=== PATIENT | male | born 1975 | race Caucasian/White ===

== ENCOUNTER 2020-03-01 12:10 | Outpatient (REF) | payer OTHER, SELFPAY | END 2020-03-01 12:11 | disposition home or self-care (01) | LOC: HO.LAB 12:10 | PROVIDERS: Visit Provider Internal Medicine | DX: Z20.828 Contact with and (suspected) exposure to other viral communicable diseases (principal) | CPT/HCPCS: C9803; U0003 ==

== ENCOUNTER 2022-05-06 17:38 | Inpatient (IN) | payer OTHER, SELFPAY ==
[2022-05-06 17:46] VITALS: BP 186/109; BP 200/110; PULSE 92; PULSE 97; RESP 17; TEMP 37.9; O2SAT 96; BMI 28.3
--- NOTE | 2022-05-06 17:51 | ED.PSYCH ---
HPI - Psych General Chief Complaint: Psychiatric Symptoms Stated Complaint: crisis Time Seen by Provider: 05/06/22 17:42 Source: patient Mode of arrival: EMS Limitations: no limitations History of Present Illness HPI Narrative: 46-year-old male with history of anxiety ,depression presenting for suicidal ideations with a plan. Denies homicidal ideations. Patient tells me that he plans to overdose on pills. Patient also tells me he is experiencing tactile, visual, auditory hallucinations. He feels things crawling on his skin, he see shadows, and hears people shouting at him in his head. Patient smokes marijuana daily. He denies illicit drug use and alcohol use. Denies medical complaints Related Data Home Medications Medication Instructions Recorded Confirmed atorvastatin 40 mg tablet 40 mg PO DAILY 05/06/22 05/06/22 betamethasone dipropionate 0.05 % 1 appl topical PER PKG DIR 05/06/22 05/06/22 lotion budesonide-formoterol HFA 80 2 puff inhalation BID 05/06/22 05/06/22 mcg-4.5 mcg/actuation aerosol inhaler (Symbicort) dupilumab 300 mg/2 mL subcutaneous 300 mg subcut Q2W 05/06/22 05/06/22 syringe ([employer]) famotidine 40 mg tablet 40 mg PO BID 05/06/22 05/06/22 naproxen 500 mg tablet 500 mg PO BID 05/06/22 05/06/22 omeprazole 40 mg capsule,delayed 40 mg PO DAILY 05/06/22 05/06/22 release Allergies Allergy/AdvReac Type Severity Reaction Status Date / Time perfume Allergy Runny Nose Verified 05/06/22 19:20 soap Allergy Rash Verified 05/06/22 19:19 Review of Systems Review of Systems: Constitutional : No Fever, No Chills ENT/Mouth : No Ear Pain, No Nasal Congestion, No sore throat Eyes: No Eye Pain, No Swelling, No Redness Cardiovascular : No Chest Pain, No SOB Respiratory : No Cough, No Sputum, No Dyspnea Gastrointestinal : No Nausea, No Vomiting, No Diarrhea, No Hematochezia, No Melena Genitourinary : No Dysuria, No Urinary Frequency, No Hematuria Musculoskeletal : No Myalgias Skin : No Skin Lesions, No rash Neuro : No Weakness, No Numbness, No Paresthesias, No Dizziness, No Headache Psych : positive Anxiety, positive Depression, positive SI. Negative HI All other systems reviewed and are negative Yes all other systems are reviewed and are negative [facility] Past Medical History Attestation statement: The following information was validated with the patient. Source: old records reviewed and nursing notes reviewed Social History Social History Advance Directives: No Physical Exam Vital Signs: Vital Signs: Last Vital Signs Temp 98.4 F 05/06/22 19:18 Pulse 78 05/06/22 19:18 Resp 17 05/06/22 19:18 BP 153/105 H 05/06/22 19:18 Pulse Ox 96 05/06/22 19:18 O2 Del Method 05/06/22 19:18 BMI result Body Mass Index 28.3 vss Appearance: Alert.? Oriented X3.? No acute distress.? Head: Normocephalic, atraumatic, no step-offs or deformities Eyes: Pupils equal, round and reactive to light.? Neck: Normal inspection.? Neck supple.? CVS: Normal heart rate and rhythm.? Pulses normal.? Respiratory: No respiratory distress.? Breath sounds normal.? Abdomen: Soft and nontender.? Skin: Skin warm and dry.? Normal skin color.? Normal skin turgor.? Extremities: No lower extremity edema.? No calf ttp. 5/5 strength to bilateral upper and lower extremities Neuro: Oriented X 3.? No motor deficit.? No sensory deficit. CN 2-12 intact Course Reevaluation(s) Reevaluation #1: Nurse alerted me the patient's blood pressure is 186/109 and patient has not taking his hypertension medications for a few days. Will start on amlodipine I did medication reconciliation and patient is not on blood pressure medications. Patient is hyper tension likely chronic, no acute signs of hypertension, no changes in vision, headache or vision changes. Unlikely hypertensive urgency or emergency. Time: 22:55 Reevaluation #2: CBC appears to be within normal limits. Chemistry without acute findings requiring intervention. UA clean. Urine toxicology positive for marijuana. Salicylates acetaminophen ethanol level negative. Patient COVID negative. At this time patient will be placed into observation to allow more time to be evaluated by the behavioral health team. At time observation was started patient common cooperative no acute distress. Will continue to monitor pressures. Time: 22:56 Medications Administered Generic Name Dose Route Start Last Admin Trade Name Freq PRN Reason Stop Dose Admin Famotidine 40 mg 05/06/22 21:00 05/06/22 19:54 Famotidine 20 Mg Tablet PO 40 mg BID RASHAD Administration Naproxen 500 mg 05/06/22 21:00 05/06/22 19:53 Naproxen 500 Mg Tablet PO 500 mg BID RASHAD Administration Discontinued Medications Generic Name Dose Route Start Last Admin Trade Name Freq PRN Reason Stop Dose Admin Amlodipine Besylate 5 mg 05/06/22 20:54 05/06/22 21:14 Amlodipine Besylate 5 Mg Tablet PO 05/06/22 20:55 5 mg ONCE ONE Administration Protocol Medical Decision Making Medical Decision Making [facility] Narrative: 46-year-old male presents with suicidal ideations with a plan to overdose on pills. Physical exam benign Likely anxiety and depression versus polysubstance abuse.. Other differentials include metabolic disturbances and electrolyte imbalances although less likley . Plan: Labs, behavior health consult Differential Diagnosis Differential Diagnoses: The differential diagnosis associated with the presentation includes Likely anxiety and depression versus polysubstance abuse.. Other differentials include metabolic disturbances and electrolyte imbalances although less likley . Admission/Observation Consideration of admission/observation: Escalation of care including admission/observation considered likely Consult Healthcare Provider Management of the patient was discussed with: Behavioral Health Provider Lab Data [facility] Lab Attestation statement: I reviewed the patient's lab results. 05/06/22 18:19 05/06/22 18:19 Labs: Lab Results 05/06/22 05/06/22 05/06/22 Range/Units 17:55 17:55 17:55 WBC (4.8-10.8) X10*3/uL RBC (4.60-5.80) X10*6/uL Hgb (14.0-18.0) g/dl Hct (42.0-52.0) % MCV (80.0-98.0) fL MCH (27.0-33.0) pg MCHC (31.0-36.0) g/dl RDW (11.0-16.0) % Plt Count (160-400) X10*3/uL MPV (9.4-12.4) fL Immature Gran % (Auto) (0.0-0.4) % Neut % (Auto) (45-73) % Lymph % (Auto) (20-40) % [place] % (Auto) (2-11) % Eos % (Auto) (0-4) % Baso % (Auto) (0-2) % Lymph # (Auto) (1.2-4.9) X10*3/uL [place] # (Auto) (0.1-1.2) X10*3/uL Eos # (Auto) (0.0-0.4) X10*3/uL Baso # (Auto) (0.0-0.2) X10*3/uL Abs Immat Gran (auto) (0.00-0.03) X10*3/uL Absolute Neuts (auto) (2.0-8.3) x10*3/uL Absolute Nucleated RBC (0.0-0.012) X10*3/uL Nucleated RBC % (auto) (0.0-0.2) /100WBC Sodium (135-145) mmol/L Potassium (3.3-5.1) mmol/L Chloride (96-108) mmol/L Carbon Dioxide (22-29) mmol/L Anion Gap (12-20) BUN (9-16) mg/dL Creatinine (0.5-1.4) mg/dL Estim Creat Clear Calc Estimated GFR Random Glucose (60-115) mg/dL Calcium (8.4-10.2) mg/dL Magnesium (1.6-2.6) mg/dL Total Bilirubin (0.0-1.0) mg/dL AST (5-37) U/L ALT (0-40) U/L Alkaline Phosphatase (39-117) U/L Total Protein (6.5-8.0) g/dL Albumin (3.5-5.0) g/dL Urine Color Yellow Urine Appearance Clear Urine pH 6.0 (5.0-9.0) Ur Specific [place] >= 1.030 H (1.005-1.025) Urine Protein Trace (Neg-Trace) mg/dL Urine Glucose (UA) Negative (Negative) mg/dL Urine Ketones Trace (Negative) mg/dL Urine Blood Negative (Negative) Urine Nitrite Negative (Negative) Ur Leukocyte Esterase Negative (Negative) Salicylates (15-30) mg/dL Urine Opiates Screen Not Detected (Not Detect) Urine Fentanyl Screen Not Detected (Not Detect) Acetaminophen (<30) mcg/mL Ur Barbiturates Screen Not Detected (Not Detect) Ur Phencyclidine Scrn Not Detected (Not Detect) Ur Amphetamines Screen Not Detected (Not Detect) U Benzodiazepines Scrn Not Detected (Not Detect) Urine Cocaine Screen Not Detected (Not Detect) U Marijuana (THC) Screen POSITIVE H (Not Detect) Ethyl Alcohol mg/dL COVID-19 (MARY) Negative (Negative) COVID-19 Clin Com See Note 05/06/22 05/06/22 Range/Units 18:19 18:19 WBC 10.4 (4.8-10.8) X10*3/uL RBC 4.33 L (4.60-5.80) X10*6/uL Hgb 13.9 L (14.0-18.0) g/dl Hct 41.2 L (42.0-52.0) % MCV 95.2 (80.0-98.0) fL MCH 32.1 (27.0-33.0) pg MCHC 33.7 (31.0-36.0) g/dl RDW 15.2 (11.0-16.0) % Plt Count 251 (160-400) X10*3/uL MPV 11.5 (9.4-12.4) fL Immature Gran % (Auto) 0.6 H (0.0-0.4) % Neut % (Auto) 60.5 (45-73) % Lymph % (Auto) 24.0 (20-40) % [place] % (Auto) 13.2 H (2-11) % Eos % (Auto) 1.3 (0-4) % Baso % (Auto) 0.4 (0-2) % Lymph # (Auto) 2.5 (1.2-4.9) X10*3/uL [place] # (Auto) 1.4 H (0.1-1.2) X10*3/uL Eos # (Auto) 0.1 (0.0-0.4) X10*3/uL Baso # (Auto) 0.0 (0.0-0.2) X10*3/uL Abs Immat Gran (auto) 0.06 H (0.00-0.03) X10*3/uL Absolute Neuts (auto) 6.3 (2.0-8.3) x10*3/uL Absolute Nucleated RBC 0.000 (0.0-0.012) X10*3/uL Nucleated RBC % (auto) 0.0 (0.0-0.2) /100WBC Sodium 144 (135-145) mmol/L Potassium 4.9 (3.3-5.1) mmol/L Chloride 110 H (96-108) mmol/L Carbon Dioxide 26 (22-29) mmol/L Anion Gap 13 (12-20) BUN 20 H (9-16) mg/dL Creatinine 1.36 (0.5-1.4) mg/dL Estim Creat Clear Calc 63.6 Estimated GFR 56 Random Glucose 109 (60-115) mg/dL Calcium 9.5 (8.4-10.2) mg/dL Magnesium 2.0 (1.6-2.6) mg/dL Total Bilirubin 0.8 (0.0-1.0) mg/dL AST 25 (5-37) U/L ALT 32 (0-40) U/L Alkaline Phosphatase 89 (39-117) U/L Total Protein 7.0 (6.5-8.0) g/dL Albumin 4.3 (3.5-5.0) g/dL Urine Color Urine Appearance Urine pH (5.0-9.0) Ur Specific [place] (1.005-1.025) Urine Protein (Neg-Trace) mg/dL Urine Glucose (UA) (Negative) mg/dL Urine Ketones (Negative) mg/dL Urine Blood (Negative) Urine Nitrite (Negative) Ur Leukocyte Esterase (Negative) Salicylates < 5.0 L (15-30) mg/dL Urine Opiates Screen (Not Detect) Urine Fentanyl Screen (Not Detect) Acetaminophen < 17 (<30) mcg/mL Ur Barbiturates Screen (Not Detect) Ur Phencyclidine Scrn (Not Detect) Ur Amphetamines Screen (Not Detect) U Benzodiazepines Scrn (Not Detect) Urine Cocaine Screen (Not Detect) U Marijuana (THC) Screen (Not Detect) Ethyl Alcohol < 10 mg/dL COVID-19 (MARY) (Negative) COVID-19 Clin Com Core Measures AMI core measures followed: Yes Measure exclusions: not indicated Critical Care Time Critical Care Time Critical Care Time: No Discharge Plan Discharge Clinical Impression: Depression, Acute anxiety, Hypertension Patient Disposition: Still a Patient Prescriptions: No Action betamethasone dipropionate 0.05 % Lotion 1 appl TOPICAL PER PKG DIR Rx Instructions: For eczema budesonide-formoterol [Symbicort] 80-4.5 mcg/actuation Hfa Aerosol Inhaler 2 puff INHALATION BID famotidine 40 mg Tablet 40 mg PO BID naproxen 500 mg Tablet 500 mg PO BID atorvastatin 40 mg Tablet 40 mg PO DAILY omeprazole 40 mg Capsule,Delayed Release(Dr/Ec) 40 mg PO DAILY Dupixent Syringe 300 mg/2 mL Syringe 300 mg SUBCUT Q2W Interventions: [place]-Suicide Risk Severity Scale Last Done: 05/06/22 21:10
--- NOTE | 2022-05-06 17:54 | PC.NURSE ---
PA notified of high blood pressure and being off htn meds for months.
[2022-05-06 18:13] LABS: Appearance Urine Clear; Color Urine Yellow; Glucose Urine UA Negative (Negative); Leukocyte Esterase Urine Negative (Negative); Nitrite Urine Negative (Negative); Specific Gravity - Urine >= 1.030 (1.005-1.025); Urine Blood Negative (Negative); Urine Ketones Trace mg/dL (Negative); Urine Protein Trace mg/dL (Neg-Trace)
[2022-05-06 18:14] LABS: Amphetamine Screen Urine Not Detected (Not Detect); Barbiturates, Urine Not Detected (Not Detect); Benzodiazepines Screen Urine Not Detected (Not Detect); COVID-19 Test Negative (Negative); Cannabinoid Screen Urine POSITIVE (Not Detect); Cocaine Screen Urine Not Detected (Not Detect); Fentanyl, urine Not Detected (Not Detect); IDNOW Serial# 9DB6401D; Opiate Screen Urine Not Detected (Not Detect); Phencyclidine Screen Urine Not Detected (Not Detect)
[2022-05-06 18:24] LABS: MANUAL DIFF FLAG NO
[2022-05-06 18:29] LABS: Basophils Percent Auto 0.4 % (0-2); Eosinophils Absolute Auto 0.1 X10*3/uL (0.0-0.4); Eosinophils Percent Auto 1.3 % (0-4); Hematocrit 41.2 % (42.0-52.0); Hemoglobin 13.9 g/dl (14.0-18.0); Imm Gran Abs Auto 0.06 X10*3/uL (0.00-0.03); Imm Gran Pct Auto 0.6 % (0.0-0.4); Lymphocytes Absolute Auto 2.5 X10*3/uL (1.2-4.9); Mean Corpuscular HGB Conc 33.7 g/dl (31.0-36.0); Mean Corpuscular Hemoglobin 32.1 pg (27.0-33.0); Mean Corpuscular Volume 95.2 fL (80.0-98.0); Mean Platelet Volume 11.5 fL (9.4-12.4); Monocytes Absolute Auto 1.4 X10*3/uL (0.1-1.2); Monocytes Percent Auto 13.2 % (2-11); Neutrophils Absolute Auto 6.3 x10*3/uL (2.0-8.3); Neutrophils Percent Auto 60.5 % (45-73); Platelet Count 251 X10*3/uL (160-400); Red Blood Count 4.33 X10*6/uL (4.60-5.80); Red Cell Distribution Width 15.2 % (11.0-16.0); White Blood Count 10.4 X10*3/uL (4.8-10.8)
[2022-05-06 18:42] LABS: Alanine Aminotransferase 32 U/L (0-40); Albumin Level 4.3 g/dL (3.5-5.0); Alkaline Phosphatase 89 U/L (39-117); Anion Gap 13 (12-20); Aspartate Amino Transferase 25 U/L (5-37); Bilirubin Total 0.8 mg/dL (0.0-1.0); Blood Urea Nitrogen 20 mg/dL (9-16); Calcium 9.5 mg/dL (8.4-10.2); Carbon Dioxide 26 mmol/L (22-29); Chloride 110 mmol/L (96-108); Creatinine Clr Calc Pharmacy 63.6; Estimated Glomerular Filt Rate 56; Ethanol < 10 mg/dL; Glucose Random 109 mg/dL (60-115); Potassium 4.9 mmol/L (3.3-5.1); Sodium 144 mmol/L (135-145)
--- NOTE | 2022-05-06 18:51 | MHC.CARE ---
Pt is a N bedsearch from the community, called to confirm @[id number]
[2022-05-06 18:55] LABS: Acetaminophen LAB < 17 mcg/mL (<30); Salicylate < 5.0 mg/dL (15-30)
[2022-05-06 19:18] VITALS: BP 153/105; PULSE 78; RESP 17; TEMP 36.9; O2SAT 96
[2022-05-06] MEDS: NaPROXEN 500 MG TABLET PO (19:53)
[2022-05-06] MEDS: Famotidine 20 MG TABLET 40 MG PO (19:54)
[2022-05-06] MEDS: amLODIPine Besylate 5 MG TABLET PO (21:14)
[2022-05-06 23:01] VITALS: BP 137/88; PULSE 62
[2022-05-07 06:00] VITALS: BP 132/99; PULSE 64; RESP 17; TEMP 36.6; O2SAT 97
[2022-05-07] MEDS: Omeprazole 40 MG CAPSULE.DR PO (06:08)
[2022-05-07] MEDS: NaPROXEN 500 MG TABLET PO ×2 (07:24→20:11)
[2022-05-07] MEDS: Famotidine 20 MG TABLET 40 MG PO ×2 (07:24→20:11)
[2022-05-07] MEDS: Atorvastatin Calcium 40 MG TABLET PO (07:24)
[2022-05-07 07:28] VITALS: BP 146/84; PULSE 82; RESP 12; TEMP 36.7; O2SAT 94
[2022-05-07] MEDS: Fluticasone/Vilanterol 100/25 BLST.W.DEV 1 PUFF INHALE (09:37)
--- NOTE | 2022-05-07 09:59 | ECG_ITS ---
Test Reason : check qt interval Blood Pressure : / mmHG Vent. Rate : 055 BPM Atrial Rate : 055 BPM P-R Int : 148 ms QRS Dur : 080 ms QT Int : 432 ms P-R-T Axes : 054 051 -14 degrees QTc Int : 413 ms Sinus bradycardia Abnormal QRS-T angle, consider primary T wave abnormality Abnormal ECG No previous ECGs available Referred By: Hunter Olvera Electronically Signed By:HARLEY NAPOLES MD
--- NOTE | 2022-05-07 14:06 | PC.NURSE ---
report given to MAIA lim, to be admitted to [facility]
[2022-05-07 15:31] VITALS: BP 134/76; PULSE 59; RESP 19; TEMP 36.9; O2SAT 96
[2022-05-07] MEDS: Milk of Magnesia 30 ML ORAL.SUSP PO (18:43)
--- NOTE | 2022-05-07 19:53 | PC.ADMIT ---
Pt is a 46 year old Latvian speaking only who presents to from [facility] ed at approximately 18:10 on a cv status. Pt is Covid -. Tox screen + for THC. Pt is unknown to . Per chart review, pt presented to [facility] on 05/06/22 due to SI, depression, and loneliness. Pt reported his therapist did not answer her phone and he became nervous. Pt reported that he had a plan to jump off the 3rd floor of an apartment building and attempted to jump out of a window 2 weeks ago but his cousin stopped him. During admit pt reported having AH of children, women and males with negative voices. Pt reported to using THC daily. Pt stated he has been off his mediations and wants to be restarted on them. Provider was notified and called for admission orders. Start treatment plan and monitor for safety.
[2022-05-07] MEDS: Nicotine Polacrilex Lozenge 2 MG LOZENGE BUCCAL (21:07)
[2022-05-08] MEDS: NaPROXEN 500 MG TABLET PO ×2 (08:20→20:29)
[2022-05-08] MEDS: Atorvastatin Calcium 40 MG TABLET PO (08:20)
[2022-05-08] MEDS: Nicotine 21 MG PATCH.TD24 TRANSDERMA (08:20)
[2022-05-08] MEDS: Omeprazole 40 MG CAPSULE.DR PO (08:20)
[2022-05-08] MEDS: Famotidine 20 MG TABLET 40 MG PO ×2 (08:20→20:30)
[2022-05-08 09:13] VITALS: BP 144/90; PULSE 70; RESP 18; TEMP 36.1; O2SAT 92
[2022-05-08 09:52] LABS: Estimated Average Glucose 111 mg/dL; Hemoglobin A1c % 5.5 %
--- NOTE | 2022-05-08 10:16 | HO.PSYADMNOT ---
HPI Date of Service: 05/08/22 Chief Complaint: Depression, SI Sources of Information: patient interviewed, chart reviewed and crisis/core team assessment reviewed HPI Subjective Notes: Cruz Warning and Conditional Voluntary Narrative: Patient is a 46-year-old male who reports he has a history of depression and bipolar disorder and chronic anxiety whose depression/anxiety has been worsening over the past 6 months since he's been off medications, getting considerably worse this past week, without known trigger, at which time patient became suicidal and thus self presented. Patient reports that on Abilify and Zoloft he has been overall happy and doing well. Six months ago his psychiatrist retired and he has been waiting for a new psychiatric provider ever since; thus he has been off medications. Patient reports that his depression/anxiety came back pretty soon and has steadily worsened over the past few months. Patient reports he has been crying frequently without knowing why; he will get easily irritable and aggressively yells at people; this is progress towards hitting himself in the face with his hands and has a hard time falling sleep. Patient self-deprecating thoughts have increased and he has started thinking bad thing about himself; He is not sure why it worsened this past week but he started wishing he would ; patient endorses that at nighttime (only), he will have auditory hallucinations hearing to kill himself; he endorses seeing shadows at night. Patient started to formulate a plan to either jump from a bridge or overdose on pills however his cousin was worried about him and called to help and with his therapists help patient called crisis. Patient very much wants to restart home medication regimen. Patient denies history of trauma; patient denies drug use other than daily cannabis. On Friday night he will drink about 6 beers but otherwise does not imbibe. Past Psychiatric History: no past psychiatric admissions Seen at [facility] for 15 years; psychiatrist retired 6 months ago and patient is still pending new psychiatric provider Medical Evaluation Reviewed: Yes [facility] Medical History (Updated 05/08/22 @ 18:10 by Anthony Grissom MD) MDD (major depressive disorder), recurrent, severe, with psychosis Family History: Deferred Social History: Born in [facility]; he and his family moved to [place] when he was 4 Patient has a sister Patient mood back to [place] when he was 21-year-old; he keeps in touch with his family. Substance History: Binge drinks once a week Trauma History: Denies Diagnostics Vital Signs (24Hr): Vital Signs - 24 hr 05/07/22 15:31 05/08/22 09:13 Temperature 98.5 F 97.0 F Pulse Rate 59 70 Respiratory Rate 19 18 Blood Pressure 134/76 144/90 H Pulse Oximetry 96 92 Oxygen Delivery Method Room Air Room Air BMI result Body Mass Index 28.3 Labs 05/06/22 18:19 05/06/22 18:19 Labs: Laboratory Results - last 48 hr 05/06/22 05/06/22 05/06/22 17:55 17:55 17:55 WBC RBC Hgb Hct MCV MCH MCHC RDW Plt Count MPV Immature Gran % (Auto) Neut % (Auto) Lymph % (Auto) [place] % (Auto) Eos % (Auto) Baso % (Auto) Lymph # (Auto) [place] # (Auto) Eos # (Auto) Baso # (Auto) Abs Immat Gran (auto) Absolute Neuts (auto) Absolute Nucleated RBC Nucleated RBC % (auto) Sodium Potassium Chloride Carbon Dioxide Anion Gap BUN Creatinine Estim Creat Clear Calc Estimated GFR Random Glucose Estimat Average Glucose Hemoglobin A1c % Calcium Magnesium Total Bilirubin AST ALT Alkaline Phosphatase Total Protein Albumin Urine Color Yellow Urine Appearance Clear Urine pH 6.0 Ur Specific [place] >= 1.030 H Urine Protein Trace Urine Glucose (UA) Negative Urine Ketones Trace Urine Blood Negative Urine Nitrite Negative Ur Leukocyte Esterase Negative Salicylates Urine Opiates Screen Not Detected Urine Fentanyl Screen Not Detected Acetaminophen Ur Barbiturates Screen Not Detected Ur Phencyclidine Scrn Not Detected Ur Amphetamines Screen Not Detected U Benzodiazepines Scrn Not Detected Urine Cocaine Screen Not Detected U Marijuana (THC) Screen POSITIVE H Ethyl Alcohol COVID-19 (MARY) Negative COVID-19 Clin Com See Note 05/06/22 05/06/22 05/08/22 18:19 18:19 09:27 WBC 10.4 RBC 4.33 L Hgb 13.9 L Hct 41.2 L MCV 95.2 MCH 32.1 MCHC 33.7 RDW 15.2 Plt Count 251 MPV 11.5 Immature Gran % (Auto) 0.6 H Neut % (Auto) 60.5 Lymph % (Auto) 24.0 [place] % (Auto) 13.2 H Eos % (Auto) 1.3 Baso % (Auto) 0.4 Lymph # (Auto) 2.5 [place] # (Auto) 1.4 H Eos # (Auto) 0.1 Baso # (Auto) 0.0 Abs Immat Gran (auto) 0.06 H Absolute Neuts (auto) 6.3 Absolute Nucleated RBC 0.000 Nucleated RBC % (auto) 0.0 Sodium 144 Potassium 4.9 Chloride 110 H Carbon Dioxide 26 Anion Gap 13 BUN 20 H Creatinine 1.36 Estim Creat Clear Calc 63.6 Estimated GFR 56 Random Glucose 109 Estimat Average Glucose 111 Hemoglobin A1c % 5.5 Calcium 9.5 Magnesium 2.0 Total Bilirubin 0.8 AST 25 ALT 32 Alkaline Phosphatase 89 Total Protein 7.0 Albumin 4.3 Urine Color Urine Appearance Urine pH Ur Specific [place] Urine Protein Urine Glucose (UA) Urine Ketones Urine Blood Urine Nitrite Ur Leukocyte Esterase Salicylates < 5.0 L Urine Opiates Screen Urine Fentanyl Screen Acetaminophen < 17 Ur Barbiturates Screen Ur Phencyclidine Scrn Ur Amphetamines Screen U Benzodiazepines Scrn Urine Cocaine Screen U Marijuana (THC) Screen Ethyl Alcohol < 10 COVID-19 (MARY) COVID-19 Clin Com Meds/Allergies Meds Home Medications Medication Instructions Recorded Confirmed Type atorvastatin 40 mg tablet 40 mg PO DAILY 05/06/22 05/06/22 History betamethasone dipropionate 0.05 % 1 appl topical PER PKG DIR 05/06/22 05/06/22 History lotion budesonide-formoterol HFA 80 2 puff inhalation BID 05/06/22 05/06/22 History mcg-4.5 mcg/actuation aerosol inhaler (Symbicort) dupilumab 300 mg/2 mL subcutaneous 300 mg subcut Q2W 05/06/22 05/06/22 History syringe (Dupixent) famotidine 40 mg tablet 40 mg PO BID 05/06/22 05/06/22 History naproxen 500 mg tablet 500 mg PO BID 05/06/22 05/06/22 History omeprazole 40 mg capsule,delayed 40 mg PO DAILY 05/06/22 05/06/22 History release Allergies Allergies Allergy/AdvReac Type Severity Reaction Status Date / Time perfume Allergy Runny Nose Verified 05/06/22 19:20 soap Allergy Rash Verified 05/06/22 19:19 Mental Status Exam Mental Status Exam Narrative: Pt is alert and oriented; behavior is cooperative, friendly and calm; patient is not in distress; dressed in casual attire with unkempt hair, scruffy mckinley, evidence of psoriasis on his face; adequate hygiene; mood is described as depressed and affect congruent, anxious; eye contact appropriate; Speech is normal rate, volume and prosody and not pressured; no psychomotor agitation/retardation present; thought process is goal directed; Thought content is on wishing he were ; otherwise pertinent to relevant topics and without any delusional content, paranoid ideations or grandiosity; positive for SI; no HI. Intermittent AH but only at nighttime; illusions, seeing scary shadows. Patients insight and judgment are impaired Assessment & Plan Assessment & Plan (1) MDD (major depressive disorder), recurrent, severe, with psychosis: Status: Acute Code(s): F33.3 - Major depressive disorder, recurrent, severe with psychotic symptoms Plan Patient is a 46-year-old male who reports he has a history of depression and bipolar disorder and chronic anxiety whose depression/anxiety has been worsening over the past 6 months since he's been off medications, getting considerably worse this past week, without known trigger, at which time patient became suicidal and thus self presented. Patient reports that on Abilify and Zoloft he has been overall happy and doing well. -patient has intermittent AH however it is only at nighttime; he also refers to his bipolar disorder as having situationally triggered angry outbursts; will continue to assess however at this time will diagnosed with MDD, severe with psychotic symptoms. Patient says he feels safe on the unit but SI remains. Patient wants to restart his home medications which he says have been effective. -admit for safety and medication management Plan: CV Q 15 minute checks Restart Zoloft 25 mg; will titrate to 100 mg Restart Abilify at 5 mg; will titrate to 10 mg Reviewed patient's medications for psoriasis and eczema and ordered Betamethasone b.i.d. Patient educated on: diagnosis, medication risk/benefits and substance abuse Informed Consent: understands Reason for continued inpatient stay Substantial Risk for: harm to self Statement Statement: I have reviewed the history and physical and performed a pertinent examination on my patient. No changes have occurred unless specified. If the History and Physical was not performed prior to admission, the Hospitalist's service will be consulted for completing the admission physical. Time Spent With Patient Time: Total time managing care of this patient today ____ minutes.
[2022-05-08] MEDS: Fluticasone/Vilanterol 100/25 BLST.W.DEV 1 PUFF INHALE (10:26)
[2022-05-08 10:58] LABS: Cholesterol 216 mg/dL; HDL Cholesterol 44 mg/dL; LDL Cholesterol Calculated 145 mg/dl; Magnesium 2.2 mg/dL (1.6-2.6); Triglycerides 137 mg/dL
[2022-05-08 11:20] LABS: Folate 15.2 ng/mL (> or = 4.0); Free T4 (Free Thyroxine) 1.05 ng/dL (0.71-1.85); Vitamin B12 549 pg/mL (200-900)
[2022-05-08] MEDS: Sertraline HCL 25 MG TABLET PO (14:34)
[2022-05-08] MEDS: ARIPiprazole 5 MG TABLET PO (14:34)
[2022-05-08] MEDS: Betamethasone Dip Aug 0.05% Cr 15 GM TUBE 1 APPL TOPICAL (18:21)
[2022-05-08 19:30] VITALS: BP 138/102; PULSE 86; TEMP 36.6; O2SAT 96
[2022-05-08] MEDS: cloNIDine HCL 0.1 MG TABLET PO (20:30)
[2022-05-09 07:00] VITALS: BMI 31.2
[2022-05-09] MEDS: Nicotine 21 MG PATCH.TD24 TRANSDERMA (08:05)
[2022-05-09] MEDS: Betamethasone Dip Aug 0.05% Cr 15 GM TUBE 1 APPL TOPICAL ×2 (08:05→18:38)
[2022-05-09] MEDS: NaPROXEN 500 MG TABLET PO ×2 (08:09→18:37)
[2022-05-09] MEDS: Famotidine 20 MG TABLET 40 MG PO ×2 (08:09→18:37)
[2022-05-09] MEDS: Fluticasone/Vilanterol 100/25 BLST.W.DEV 1 PUFF INHALE (08:10)
[2022-05-09] MEDS: ARIPiprazole 5 MG TABLET PO (08:10)
[2022-05-09] MEDS: Omeprazole 40 MG CAPSULE.DR PO (08:10)
[2022-05-09] MEDS: Sertraline HCL 25 MG TABLET PO (08:10)
[2022-05-09] MEDS: Atorvastatin Calcium 40 MG TABLET PO (08:10)
[2022-05-09 08:34] VITALS: BP 136/95; PULSE 84; RESP 16; TEMP 36.1; O2SAT 96
--- NOTE | 2022-05-09 10:19 | P.PNPSI_ITS ---
Subjective Subjective Date of Service: 05/09/22 Reason For Visit: Depression, SI Interim History: Met with patient; discussed in teams. Patient reports that he is feeling a lot better. He slept well last night. Feels clear minded; he denies any SI or HI or AVH. He agrees with continue titration of Zoloft and Abilify going to 10 mg, his home dose. Discussed eczema/psoriasis which he feels is getting better. He will see if someone can bring in his clobetasol for scalp. Discussed history more regarding diagnosis of bipolar disorder. Again AVH only occurs at nighttime. Patient describes what sounds like maybe some mixed hypomanic behaviors but they seemed only last for about 2 days. Mental Status Exam Mental Status Exam Narrative: Pt is alert and oriented; behavior is cooperative, friendly and calm; patient is not in distress; dressed in casual attire with unkempt hair, scruffy mckinley, evidence of psoriasis on his face; adequate hygiene; mood is described as better and affect congruent, more calm; eye contact appropriate; Speech is normal rate, volume and prosody and not pressured; no psychomotor agitation/retardation present; thought process is goal directed; Thought content is WNL and pertinent to relevant topics and without any delusional content, paranoid ideations or grandiosity; no SI; no HI. No AH; no scary shadows. Patients insight and judgment are fair. Diagnostics Vital Signs (24Hr): Vital Signs - 24 hr 05/08/22 19:30 05/09/22 08:34 Temperature 97.9 F 96.9 F Pulse Rate 86 84 Respiratory Rate 16 Blood Pressure 138/102 H 136/95 H Pulse Oximetry 96 96 Oxygen Delivery Method Room Air Room Air BMI result Body Mass Index 31.2 Labs 05/06/22 18:19 05/06/22 18:19 Labs: Laboratory Results - last 48 hr 05/08/22 05/08/22 09:27 09:27 Estimat Average Glucose 111 Hemoglobin A1c % 5.5 Magnesium 2.2 Triglycerides 137 Cholesterol 216 LDL Cholesterol, Calc 145 HDL Cholesterol 44 Vitamin B12 549 Folate 15.2 TSH 1.30 Free T4 1.05 Medications Medications Current Medications Acetaminophen (Acetaminophen 325 Mg Tablet) 650 mg PO Q6H PRN PRN Reason: Headache/Pain Mild Scale (1-3) Al Hydroxide/Mg Hydroxide (Magnesium Hydrox/Alum Hydrox 30 Ml Oral.Susp) 30 ml PO Q6H PRN PRN Reason: Heartburn/Nausea Aripiprazole (Aripiprazole 5 Mg Tablet) 5 mg PO DAILY [facility] Last Admin: 05/09/22 08:10 Dose: 5 mg Atorvastatin Calcium (Atorvastatin Calcium 40 Mg Tablet) 40 mg PO DAILY [facility] Last Admin: 05/09/22 08:10 Dose: 40 mg Betamethasone Dipropion Augmented (Betamethasone Dip Aug 0.05% Cr 15 Gm Tube) 1 appl TOPICAL BID [facility]; Protocol Last Admin: 05/09/22 08:05 Dose: 1 appl Clonidine HCl (Clonidine Hcl 0.1 Mg Tablet) 0.1 mg PO BEDTIME [facility]; Protocol Last Admin: 05/08/22 20:30 Dose: 0.1 mg Clonidine HCl (Clonidine Hcl 0.1 Mg Tablet) 0.1 mg PO Q4H PRN; Protocol PRN Reason: anxiety Famotidine (Famotidine 20 Mg Tablet) 40 mg PO BID [facility] Last Admin: 05/09/22 08:09 Dose: 40 mg Fluticasone/Vilanterol (Fluticasone/Vilanterol 100/25 Blst.W.Dev) 1 puff INHALE RDAILY [facility] Last Admin: 05/09/22 08:10 Dose: 1 puff Hydroxyzine HCl (Hydroxyzine Hcl 25 Mg Tablet) 25 mg PO Q6H PRN PRN Reason: Anxiety Magnesium Hydroxide (Milk Of Magnesia 30 Ml Oral.Susp) 30 ml PO DAILY PRN PRN Reason: Constipation Last Admin: 05/07/22 18:43 Dose: 30 ml Naproxen (Naproxen 500 Mg Tablet) 500 mg PO BID [facility] Last Admin: 05/09/22 08:09 Dose: 500 mg Nicotine (Nicotine 21 Mg Patch.Td24) 21 mg TRANSDERMA DAILY [facility] Last Admin: 05/09/22 08:05 Dose: 21 mg Nicotine Polacrilex (Nicotine Polacrilex Lozenge 2 Mg Lozenge) 2 mg BUCCAL Q2H PRN PRN Reason: Nicotine Cravings Non-Formulary Medication (Dupilumab [Dupixent Syringe]) 300 mg SUBCUT Q14D [facility] Omeprazole (Omeprazole 40 Mg Capsule.Dr) 40 mg PO DAILY@0630 [facility] Last Admin: 05/09/22 08:10 Dose: 40 mg Pharmacy Consult (Consult Rx Perform Med Rec) 1 each MISCELLANE ONCE PRN PRN Reason: Consult order Sertraline HCl (Sertraline Hcl 25 Mg Tablet) 25 mg PO DAILY [facility] Last Admin: 05/09/22 08:10 Dose: 25 mg Trazodone HCl (Trazodone Hcl 50 Mg Tablet) 50 mg PO BEDTIME MRX1 PRN PRN Reason: Insomnia Triamcinolone Acetonide (Triamcinolone Acet 0.5 % Cream 15 Gm Tube) 1 appl TOPICAL BID PRN PRN Reason: RASH OR eczema Allergies Allergies Allergy/AdvReac Type Severity Reaction Status Date / Time perfume Allergy Runny Nose Verified 05/06/22 19:20 soap Allergy Rash Verified 05/06/22 19:19 Assessment & Plan Assessment & Plan (1) MDD (major depressive disorder), recurrent, severe, with psychosis: Status: Acute Code(s): F33.3 - Major depressive disorder, recurrent, severe with psychotic symptoms Plan Patient is a 46-year-old male who reports he has a history of depression and bipolar disorder and chronic anxiety whose depression/anxiety has been worsening over the past 6 months since he's been off medications, getting considerably worse this past week, without known trigger, at which time patient became suicidal and thus self presented. Patient reports that on Abilify and Zoloft he has been overall happy and doing well. -patient has intermittent AH however it is only at nighttime; he also refers to his bipolar disorder as having situationally triggered angry outbursts; will continue to assess however at this time will diagnosed with MDD, severe with psychotic symptoms. Patient says he feels safe on the unit but SI remains. Patient wants to restart his home medications which he says have been effective. -admit for safety and medication management 3/2 Patient reports that he is feeling a lot better. He slept well last night. Feels clear minded; he denies any SI or HI or AVH. He agrees with continue titration of Zoloft and Abilify going to 10 mg, his home dose. Discussed eczema/psoriasis which he feels is getting better. He will see if someone can bring in his clobetasol for scalp. Discussed history more regarding diagnosis of bipolar disorder. Again AVH only occurs at nighttime. Patient describes what sounds like maybe some mixed hypomanic behaviors but they seemed only last for about 2 days. 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 Patient seems to be stabilizing; however he was recently contemplating suicide and symptoms are only newly resolved; patient needs to remain on the unit for safety for continued stabilization and titration of Zoloft. Plan: CV Q 15 minute checks Increased to Zoloft 50 mg; will titrate to 100 mg Increased to Abilify 10 mg -will consider BP medication Reviewed patient's medications for psoriasis and eczema and ordered Betamethasone b.i.d. Patient educated on: diagnosis and medication risk/benefits Informed Consent: understands Reason for contiued inpatient stay Substantial Risk for: rapid decompensation Time Spent With Patient Time: Total time managing care of this patient today ____ minutes.
[2022-05-09] MEDS: cloNIDine HCL 0.1 MG TABLET PO (18:37)
[2022-05-09 19:05] VITALS: BP 169/113; PULSE 93
[2022-05-09] MEDS: traZODone HCL 50 MG TABLET PO (20:17)
[2022-05-09] MEDS: hydrOXYzine HCL 25 MG TABLET PO (20:19)
[2022-05-10] MEDS: Famotidine 20 MG TABLET 40 MG PO ×2 (08:00→21:22)
[2022-05-10] MEDS: ARIPiprazole 10 MG TABLET PO (08:00)
[2022-05-10] MEDS: Atorvastatin Calcium 40 MG TABLET PO (08:00)
[2022-05-10] MEDS: NaPROXEN 500 MG TABLET PO ×2 (08:00→21:22)
[2022-05-10] MEDS: Sertraline HCL 50 MG TABLET PO (08:00)
[2022-05-10] MEDS: Omeprazole 40 MG CAPSULE.DR PO (08:01)
[2022-05-10] MEDS: Nicotine 21 MG PATCH.TD24 TRANSDERMA (08:01)
[2022-05-10] MEDS: Fluticasone/Vilanterol 100/25 BLST.W.DEV 1 PUFF INHALE (08:12)
[2022-05-10] MEDS: Betamethasone Dip Aug 0.05% Cr 15 GM TUBE 1 APPL TOPICAL ×2 (08:12→22:27)
[2022-05-10 09:08] VITALS: BP 144/91; PULSE 66; RESP 18; TEMP 36.6; O2SAT 97
--- NOTE | 2022-05-10 10:02 | HO.PSYCHPN ---
Subjective Subjective Date of Service: 05/10/22 Reason For Visit: Depression, SI Interim History: Met with patient; discussed in teams Patient reports doing much better and that depression continues to resolve. No SI no AVH. Discussed elevated blood pressure and prediabetic status; discussed risks/benefits of lisinopril to which patient ask questions and agrees to start this medication Mental Status Exam Mental Status Exam Narrative: Pt is alert and oriented; behavior is cooperative, friendly and calm; patient is not in distress; dressed in casual attire with scruffy mckinley, evidence of improving psoriasis; adequate hygiene; mood is described as better and affect congruent, more calm; eye contact appropriate; Speech is normal rate, volume and prosody and not pressured; no psychomotor agitation/retardation present; thought process is goal directed; Thought content is WNL and pertinent to relevant topics and without any delusional content, paranoid ideations or grandiosity; no SI; no HI. No AH; no scary shadows. Patients insight and judgment are fair. Diagnostics Vital Signs (24Hr): Vital Signs - 24 hr 05/09/22 19:05 05/10/22 09:08 Temperature 97.8 F Pulse Rate 93 66 Respiratory Rate 18 Blood Pressure 169/113 H 144/91 H Pulse Oximetry 97 Oxygen Delivery Method Room Air BMI result Body Mass Index 31.2 Labs 05/06/22 18:19 05/06/22 18:19 Labs: Laboratory Results - last 48 hr 05/08/22 09:27 Magnesium 2.2 Triglycerides 137 Cholesterol 216 LDL Cholesterol, Calc 145 HDL Cholesterol 44 Vitamin B12 549 Folate 15.2 TSH 1.30 Free T4 1.05 Medications Medications Current Medications Acetaminophen (Acetaminophen 325 Mg Tablet) 650 mg PO Q6H PRN PRN Reason: Headache/Pain Mild Scale (1-3) Al Hydroxide/Mg Hydroxide (Magnesium Hydrox/Alum Hydrox 30 Ml Oral.Susp) 30 ml PO Q6H PRN PRN Reason: Heartburn/Nausea Aripiprazole (Aripiprazole 10 Mg Tablet) 10 mg PO DAILY [facility] Last Admin: 05/10/22 08:00 Dose: 10 mg Atorvastatin Calcium (Atorvastatin Calcium 40 Mg Tablet) 40 mg PO DAILY [facility] Last Admin: 05/10/22 08:00 Dose: 40 mg Betamethasone Dipropion Augmented (Betamethasone Dip Aug 0.05% Cr 15 Gm Tube) 1 appl TOPICAL BID [facility]; Protocol Last Admin: 05/10/22 08:12 Dose: 1 appl Clonidine HCl (Clonidine Hcl 0.1 Mg Tablet) 0.1 mg PO BEDTIME [facility]; Protocol Last Admin: 05/09/22 18:37 Dose: 0.1 mg Clonidine HCl (Clonidine Hcl 0.1 Mg Tablet) 0.1 mg PO Q4H PRN; Protocol PRN Reason: anxiety Famotidine (Famotidine 20 Mg Tablet) 40 mg PO BID [facility] Last Admin: 05/10/22 08:00 Dose: 40 mg Fluticasone/Vilanterol (Fluticasone/Vilanterol 100/25 Blst.W.Dev) 1 puff INHALE RDAILY [facility] Last Admin: 05/10/22 08:12 Dose: 1 puff Hydroxyzine HCl (Hydroxyzine Hcl 25 Mg Tablet) 25 mg PO Q6H PRN PRN Reason: Anxiety Last Admin: 05/09/22 20:19 Dose: 25 mg Magnesium Hydroxide (Milk Of Magnesia 30 Ml Oral.Susp) 30 ml PO DAILY PRN PRN Reason: Constipation Last Admin: 05/07/22 18:43 Dose: 30 ml Naproxen (Naproxen 500 Mg Tablet) 500 mg PO BID [facility] Last Admin: 05/10/22 08:00 Dose: 500 mg Nicotine (Nicotine 21 Mg Patch.Td24) 21 mg TRANSDERMA DAILY [facility] Last Admin: 05/10/22 08:01 Dose: 21 mg Nicotine Polacrilex (Nicotine Polacrilex Lozenge 2 Mg Lozenge) 2 mg BUCCAL Q2H PRN PRN Reason: Nicotine Cravings Non-Formulary Medication (Dupilumab [Dupixent Syringe]) 300 mg SUBCUT Q14D [facility] Omeprazole (Omeprazole 40 Mg Capsule.Dr) 40 mg PO DAILY@0630 [facility] Last Admin: 05/10/22 08:01 Dose: 40 mg Pharmacy Consult (Consult Rx Perform Med Rec) 1 each MISCELLANE ONCE PRN PRN Reason: Consult order Sertraline HCl (Sertraline Hcl 50 Mg Tablet) 50 mg PO DAILY [facility] Last Admin: 05/10/22 08:00 Dose: 50 mg Trazodone HCl (Trazodone Hcl 50 Mg Tablet) 50 mg PO BEDTIME MRX1 PRN PRN Reason: Insomnia Last Admin: 05/09/22 20:17 Dose: 50 mg Triamcinolone Acetonide (Triamcinolone Acet 0.5 % Cream 15 Gm Tube) 1 appl TOPICAL BID PRN PRN Reason: RASH OR eczema Allergies Allergies Allergy/AdvReac Type Severity Reaction Status Date / Time perfume Allergy Runny Nose Verified 05/06/22 19:20 soap Allergy Rash Verified 05/06/22 19:19 Assessment & Plan Assessment & Plan (1) MDD (major depressive disorder), recurrent, severe, with psychosis: Status: Acute Code(s): F33.3 - Major depressive disorder, recurrent, severe with psychotic symptoms Plan Patient is a 46-year-old male who reports he has a history of depression and bipolar disorder and chronic anxiety whose depression/anxiety has been worsening over the past 6 months since he's been off medications, getting considerably worse this past week, without known trigger, at which time patient became suicidal and thus self presented. Patient reports that on Abilify and Zoloft he has been overall happy and doing well. -patient has intermittent AH however it is only at nighttime; he also refers to his bipolar disorder as having situationally triggered angry outbursts; will continue to assess however at this time will diagnosed with MDD, severe with psychotic symptoms. Patient says he feels safe on the unit but SI remains. Patient wants to restart his home medications which he says have been effective. -admit for safety and medication management 3 Patient reports that he is feeling a lot better. He slept well last night. Feels clear minded; he denies any SI or HI or AVH. He agrees with continue titration of Zoloft and Abilify going to 10 mg, his home dose. Discussed eczema/psoriasis which he feels is getting better. He will see if someone can bring in his clobetasol for scalp. Discussed history more regarding diagnosis of bipolar disorder. Again AVH only occurs at nighttime. Patient describes what sounds like maybe some mixed hypomanic behaviors but they seemed only last for about 2 days. 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 Patient seems to be stabilizing; however he was recently contemplating suicide and symptoms are only newly resolved; patient needs to remain on the unit for safety for continued stabilization and titration of Zoloft. 3/ patient continues to improve; will continue titrating Zoloft. Patient continues to improve and remained stable without SI will proceed with discharge planning. Discussed hypertension, A1c and patient agrees to start lisinopril Plan: CV Q 15 minute checks Increased to Zoloft 75 mg; will titrate to 100 mg Continue Abilify 10 mg START lisinopril 2.5 mg daily for hypertension given pre diabetic A1c; discussed risks/side effects of this medication which patient understood, ask questions and agrees to start Reviewed patient's medications for psoriasis and eczema and ordered Betamethasone b.i.d. Patient educated on: diagnosis, medication risk/benefits and medical condition Informed Consent: understands Reason for contiued inpatient stay Substantial Risk for: med/psych decompensation Time Spent With Patient Time: Total time managing care of this patient today ____ minutes.
[2022-05-10] MEDS: Milk of Magnesia 30 ML ORAL.SUSP PO (17:53)
[2022-05-10] MEDS: lisinopriL 2.5 MG TABLET PO (20:14)
[2022-05-10 20:15] VITALS: BP 153/90; PULSE 97; TEMP 36.1
[2022-05-10 21:15] VITALS: BP 153/88; PULSE 84; TEMP 36.4
[2022-05-10] MEDS: cloNIDine HCL 0.1 MG TABLET PO (21:24)
[2022-05-10] MEDS: traZODone HCL 50 MG TABLET PO (21:27)
[2022-05-10] MEDS: Triamcinolone Acet 0.5 % Cream 15 GM TUBE 1 APPL TOPICAL (21:27)
[2022-05-11] MEDS: Omeprazole 40 MG CAPSULE.DR PO (06:33)
[2022-05-11] MEDS: lisinopriL 2.5 MG TABLET PO (08:10)
[2022-05-11] MEDS: ARIPiprazole 10 MG TABLET PO (08:10)
[2022-05-11] MEDS: Atorvastatin Calcium 40 MG TABLET PO (08:10)
[2022-05-11] MEDS: NaPROXEN 500 MG TABLET PO ×2 (08:10→18:47)
[2022-05-11] MEDS: Famotidine 20 MG TABLET 40 MG PO ×2 (08:10→18:47)
[2022-05-11] MEDS: Sertraline HCL 50 MG TABLET PO (08:10)
[2022-05-11] MEDS: Nicotine 21 MG PATCH.TD24 TRANSDERMA (08:11)
[2022-05-11 08:12] VITALS: BP 136/79; PULSE 75; RESP 18; TEMP 37; O2SAT 97
[2022-05-11] MEDS: Betamethasone Dip Aug 0.05% Cr 15 GM TUBE 1 APPL TOPICAL ×2 (08:19→18:47)
[2022-05-11] MEDS: Fluticasone/Vilanterol 100/25 BLST.W.DEV 1 PUFF INHALE (08:19)
--- NOTE | 2022-05-11 09:45 | HO.PSYCHPN ---
Subjective Subjective Date of Service: 05/11/22 Reason For Visit: Depression, SI Subjective Notes: Conditional Voluntary Healthcare Proxy: No Guardianship: No Medical Problems Affecting Mental Status: No Interim History: Pt reports improving back on medication Medication Compliance: Yes Side effects from medications: No Attending Groups: Intermittent Review of Systems Acute medical concerns: No Medical Review of Systems: unchanged Mental Status Exam Mental Status Exam Patient Appearance: Appropriate Patient Orientation: Person, Place, Time and Situation Level of Consciousness: Awake and Appropriate Patient Behavior: Appropriate Mood Description: Calm Affect Description: Appropriate Patient Cognition Impaired: No Ability to Follow Directions: Good Speech Pattern: Clear Hallucinations: None Delusions: Not Present Thought Process: Intact Thought Content: positive for Goal Oriented Judgement: Good Diagnostics Vital Signs (24Hr): Vital Signs - 24 hr 05/10/22 20:15 05/10/22 21:15 05/11/22 08:12 Temperature 97.0 F 97.6 F 98.6 F Pulse Rate 97 84 75 Respiratory Rate 18 Blood Pressure 153/90 H 153/88 H 136/79 Pulse Oximetry 97 Oxygen Delivery Method Room Air BMI result Body Mass Index 31.2 Labs 05/06/22 18:19 05/06/22 18:19 Medications Medications Current Medications Acetaminophen (Acetaminophen 325 Mg Tablet) 650 mg PO Q6H PRN PRN Reason: Headache/Pain Mild Scale (1-3) Al Hydroxide/Mg Hydroxide (Magnesium Hydrox/Alum Hydrox 30 Ml Oral.Susp) 30 ml PO Q6H PRN PRN Reason: Heartburn/Nausea Aripiprazole (Aripiprazole 10 Mg Tablet) 10 mg PO DAILY [facility] Last Admin: 05/11/22 08:10 Dose: 10 mg Atorvastatin Calcium (Atorvastatin Calcium 40 Mg Tablet) 40 mg PO DAILY [facility] Last Admin: 05/11/22 08:10 Dose: 40 mg Betamethasone Dipropion Augmented (Betamethasone Dip Aug 0.05% Cr 15 Gm Tube) 1 appl TOPICAL BID [facility]; Protocol Last Admin: 05/11/22 08:19 Dose: 1 appl Clonidine HCl (Clonidine Hcl 0.1 Mg Tablet) 0.1 mg PO BEDTIME [facility]; Protocol Last Admin: 05/10/22 21:24 Dose: 0.1 mg Clonidine HCl (Clonidine Hcl 0.1 Mg Tablet) 0.1 mg PO Q4H PRN; Protocol PRN Reason: anxiety Famotidine (Famotidine 20 Mg Tablet) 40 mg PO BID [facility] Last Admin: 05/11/22 08:10 Dose: 40 mg Fluticasone/Vilanterol (Fluticasone/Vilanterol 100/25 Blst.W.Dev) 1 puff INHALE RDAILY [facility] Last Admin: 05/11/22 08:19 Dose: 1 puff Hydroxyzine HCl (Hydroxyzine Hcl 25 Mg Tablet) 25 mg PO Q6H PRN PRN Reason: Anxiety Last Admin: 05/09/22 20:19 Dose: 25 mg Lisinopril (Lisinopril 2.5 Mg Tablet) 2.5 mg PO DAILY [facility]; Protocol Last Admin: 05/11/22 08:10 Dose: 2.5 mg Magnesium Hydroxide (Milk Of Magnesia 30 Ml Oral.Susp) 30 ml PO DAILY PRN PRN Reason: Constipation Last Admin: 05/10/22 17:53 Dose: 30 ml Naproxen (Naproxen 500 Mg Tablet) 500 mg PO BID [facility] Last Admin: 05/11/22 08:10 Dose: 500 mg Nicotine (Nicotine 21 Mg Patch.Td24) 21 mg TRANSDERMA DAILY [facility] Last Admin: 05/11/22 08:11 Dose: 21 mg Nicotine Polacrilex (Nicotine Polacrilex Lozenge 2 Mg Lozenge) 2 mg BUCCAL Q2H PRN PRN Reason: Nicotine Cravings Non-Formulary Medication (Dupilumab [Dupixent Syringe]) 300 mg SUBCUT Q14D [facility] Pt Own Clobetasol 0. (05%) 1 each PO BID PRN PRN Reason: scalp psoriasis Omeprazole (Omeprazole 40 Mg Capsule.Dr) 40 mg PO DAILY@0630 [facility] Last Admin: 05/11/22 06:33 Dose: 40 mg Pharmacy Consult (Consult Rx Perform Med Rec) 1 each MISCELLANE ONCE PRN PRN Reason: Consult order Sertraline HCl (Sertraline Hcl 25 Mg Tablet) 75 mg PO DAILY [facility] Trazodone HCl (Trazodone Hcl 50 Mg Tablet) 50 mg PO BEDTIME MRX1 PRN PRN Reason: Insomnia Last Admin: 05/10/22 21:27 Dose: 50 mg Triamcinolone Acetonide (Triamcinolone Acet 0.5 % Cream 15 Gm Tube) 1 appl TOPICAL BID PRN PRN Reason: RASH OR eczema Last Admin: 05/10/22 21:27 Dose: 1 appl Allergies Allergies Allergy/AdvReac Type Severity Reaction Status Date / Time perfume Allergy Runny Nose Verified 05/06/22 19:20 soap Allergy Rash Verified 05/06/22 19:19 Assessment & Plan Assessment & Plan (1) MDD (major depressive disorder), recurrent, severe, with psychosis: Status: Acute Code(s): F33.3 - Major depressive disorder, recurrent, severe with psychotic symptoms Assessment and Plan: better back on medication denying current psychosis on 05/11/22 Plan Patient is a 46-year-old male who reports he has a history of depression and bipolar disorder and chronic anxiety whose depression/anxiety has been worsening over the past 6 months since he's been off medications, getting considerably worse this past week, without known trigger, at which time patient became suicidal and thus self presented. Patient reports that on Abilify and Zoloft he has been overall happy and doing well. -patient has intermittent AH however it is only at nighttime; he also refers to his bipolar disorder as having situationally triggered angry outbursts; will continue to assess however at this time will diagnosed with MDD, severe with psychotic symptoms. Patient says he feels safe on the unit but SI remains. Patient wants to restart his home medications which he says have been effective. -admit for safety and medication management 05/09 Patient reports that he is feeling a lot better. He slept well last night. Feels clear minded; he denies any SI or HI or AVH. He agrees with continue titration of Zoloft and Abilify going to 10 mg, his home dose. Discussed eczema/psoriasis which he feels is getting better. He will see if someone can bring in his clobetasol for scalp. Discussed history more regarding diagnosis of bipolar disorder. Again AVH only occurs at nighttime. Patient describes what sounds like maybe some mixed hypomanic behaviors but they seemed only last for about 2 days. From his description property underwriter will not conclude bipolar disorder as the remaining other explainable reasons for these such episodes. Patient seems to be stabilizing; however he was recently contemplating suicide and symptoms are only newly resolved; patient needs to remain on the unit for safety for continued stabilization and titration of Zoloft. 3 patient continues to improve; will continue titrating Zoloft. Patient continues to improve and remained stable without SI will proceed with discharge planning. Discussed hypertension, A1c and patient agrees to start lisinopril Plan: CV Q 15 minute checks Increased to Zoloft 75 mg; will titrate to 100 mg Continue Abilify 10 mg START lisinopril 2.5 mg daily for hypertension given pre diabetic A1c; discussed risks/side effects of this medication which patient understood, ask questions and agrees to start Reviewed patient's medications for psoriasis and eczema and ordered Betamethasone b.i.d. Patient educated on: diagnosis and medication risk/benefits Informed Consent: understands Reason for contiued inpatient stay Substantial Risk for: rapid decompensation Time Spent With Patient Time: Total time managing care of this patient today ____ minutes.
[2022-05-11 16:51] VITALS: BP 133/93; PULSE 97
[2022-05-11] MEDS: cloNIDine HCL 0.1 MG TABLET PO (18:47)
[2022-05-11] MEDS: traZODone HCL 50 MG TABLET PO (18:47)
[2022-05-12] MEDS: Omeprazole 40 MG CAPSULE.DR PO (06:18)
[2022-05-12] MEDS: Fluticasone/Vilanterol 100/25 BLST.W.DEV 1 PUFF INHALE (08:16)
[2022-05-12] MEDS: Famotidine 20 MG TABLET 40 MG PO ×2 (08:16→19:44)
[2022-05-12] MEDS: Atorvastatin Calcium 40 MG TABLET PO (08:17)
[2022-05-12] MEDS: ARIPiprazole 10 MG TABLET PO (08:17)
[2022-05-12] MEDS: NaPROXEN 500 MG TABLET PO ×2 (08:17→19:44)
[2022-05-12] MEDS: lisinopriL 2.5 MG TABLET PO (08:17)
[2022-05-12] MEDS: Nicotine 21 MG PATCH.TD24 TRANSDERMA (08:18)
[2022-05-12 08:28] VITALS: BP 154/97; PULSE 92; RESP 18; TEMP 36.7; O2SAT 96
--- NOTE | 2022-05-12 10:06 | P.PNPSI_ITS ---
Subjective Subjective Date of Service: 05/12/22 Reason For Visit: Depression, SI Subjective Notes: Conditional Voluntary Healthcare Proxy: No Guardianship: No Medical Problems Affecting Mental Status: No Interim History: Pt had swelling of lip - when I discussed with dr oliver he suggested more likely the lisinopril as he has been on sertralin in the past for years and the lisinopril was new- so we stopped lisinopirl and started amilodipine instead and continued sertraline other than this he has been fine Medication Compliance: Yes Side effects from medications: Yes (lip swelling yesterday) Attending Groups: Intermittent Review of Systems Acute medical concerns: No Medical Review of Systems: unchanged (just as stated above) Mental Status Exam Mental Status Exam Patient Appearance: Appropriate Patient Orientation: Person, Place, Time and Situation Level of Consciousness: Awake and Appropriate Patient Behavior: Appropriate Mood Description: Calm Affect Description: Appropriate Patient Cognition Impaired: No Ability to Follow Directions: Good Speech Pattern: Clear Hallucinations: None Delusions: Not Present Thought Process: Intact Thought Content: positive for Goal Oriented Judgement: Good Diagnostics Vital Signs (24Hr): Vital Signs - 24 hr 05/11/22 16:51 05/12/22 08:28 Temperature 98.1 F Pulse Rate 97 92 Respiratory Rate 18 Blood Pressure 133/93 H 154/97 H Pulse Oximetry 96 Oxygen Delivery Method Room Air BMI result Body Mass Index 31.2 Labs 05/06/22 18:19 05/06/22 18:19 Medications Medications Current Medications Acetaminophen (Acetaminophen 325 Mg Tablet) 650 mg PO Q6H PRN PRN Reason: Headache/Pain Mild Scale (1-3) Al Hydroxide/Mg Hydroxide (Magnesium Hydrox/Alum Hydrox 30 Ml Oral.Susp) 30 ml PO Q6H PRN PRN Reason: Heartburn/Nausea Aripiprazole (Aripiprazole 10 Mg Tablet) 10 mg PO DAILY RASHAD Last Admin: 05/12/22 08:17 Dose: 10 mg Atorvastatin Calcium (Atorvastatin Calcium 40 Mg Tablet) 40 mg PO DAILY RASHAD Last Admin: 05/12/22 08:17 Dose: 40 mg Betamethasone Dipropion Augmented (Betamethasone Dip Aug 0.05% Cr 15 Gm Tube) 1 appl TOPICAL BID RASHAD; Protocol Last Admin: 05/12/22 08:25 Dose: Not Given Clonidine HCl (Clonidine Hcl 0.1 Mg Tablet) 0.1 mg PO BEDTIME RASHAD; Protocol Last Admin: 05/11/22 18:47 Dose: 0.1 mg Clonidine HCl (Clonidine Hcl 0.1 Mg Tablet) 0.1 mg PO Q4H PRN; Protocol PRN Reason: anxiety Famotidine (Famotidine 20 Mg Tablet) 40 mg PO BID [facility] Last Admin: 05/12/22 08:16 Dose: 40 mg Fluticasone/Vilanterol (Fluticasone/Vilanterol 100/25 Blst.W.Dev) 1 puff INHALE RDAILY [facility] Last Admin: 05/12/22 08:16 Dose: 1 puff Hydroxyzine HCl (Hydroxyzine Hcl 25 Mg Tablet) 25 mg PO Q6H PRN PRN Reason: Anxiety Last Admin: 05/09/22 20:19 Dose: 25 mg Lisinopril (Lisinopril 2.5 Mg Tablet) 2.5 mg PO DAILY [facility]; Protocol Last Admin: 05/12/22 08:17 Dose: 2.5 mg Magnesium Hydroxide (Milk Of Magnesia 30 Ml Oral.Susp) 30 ml PO DAILY PRN PRN Reason: Constipation Last Admin: 05/10/22 17:53 Dose: 30 ml Naproxen (Naproxen 500 Mg Tablet) 500 mg PO BID [facility] Last Admin: 05/12/22 08:17 Dose: 500 mg Nicotine (Nicotine 21 Mg Patch.Td24) 21 mg TRANSDERMA DAILY [facility] Last Admin: 05/12/22 08:18 Dose: 21 mg Nicotine Polacrilex (Nicotine Polacrilex Lozenge 2 Mg Lozenge) 2 mg BUCCAL Q2H PRN PRN Reason: Nicotine Cravings Non-Formulary Medication (Dupilumab [Dupixent Syringe]) 300 mg SUBCUT Q14D [facility] Pt Own Clobetasol 0. (05%) 1 each PO BID PRN PRN Reason: scalp psoriasis Omeprazole (Omeprazole 40 Mg Capsule.Dr) 40 mg PO DAILY@0630 [facility] Last Admin: 05/12/22 06:18 Dose: 40 mg Pharmacy Consult (Consult Rx Perform Med Rec) 1 each MISCELLANE ONCE PRN PRN Reason: Consult order Sertraline HCl (Sertraline Hcl 25 Mg Tablet) 75 mg PO DAILY [facility] Last Admin: 05/12/22 08:27 Dose: Not Given Trazodone HCl (Trazodone Hcl 50 Mg Tablet) 50 mg PO BEDTIME MRX1 PRN PRN Reason: Insomnia Last Admin: 05/11/22 18:47 Dose: 50 mg Triamcinolone Acetonide (Triamcinolone Acet 0.5 % Cream 15 Gm Tube) 1 appl TOPICAL BID PRN PRN Reason: RASH OR eczema Last Admin: 05/10/22 21:27 Dose: 1 appl Allergies Allergies Allergy/AdvReac Type Severity Reaction Status Date / Time perfume Allergy Runny Nose Verified 05/06/22 19:20 soap Allergy Rash Verified 05/06/22 19:19 Assessment & Plan Assessment & Plan (1) MDD (major depressive disorder), recurrent, severe, with psychosis: Status: Acute Code(s): F33.3 - Major depressive disorder, recurrent, severe with psychotic symptoms Assessment and Plan: better back on medication denying current psychosis on 05/11/22 Plan Patient is a 46-year-old male who reports he has a history of depression and bipolar disorder and chronic anxiety whose depression/anxiety has been worsening over the past 6 months since he's been off medications, getting considerably worse this past week, without known trigger, at which time patient became suicidal and thus self presented. Patient reports that on Abilify and Zoloft he has been overall happy and doing well. -patient has intermittent AH however it is only at nighttime; he also refers to his bipolar disorder as having situationally triggered angry outbursts; will continue to assess however at this time will diagnosed with MDD, severe with psychotic symptoms. Patient says he feels safe on the unit but SI remains. Patient wants to restart his home medications which he says have been effective. -admit for safety and medication management 05/09 Patient reports that he is feeling a lot better. He slept well last night. Feels clear minded; he denies any SI or HI or AVH. He agrees with continue titration of Zoloft and Abilify going to 10 mg, his home dose. Discussed ecz sammy/psoriasis which he feels is getting better. He will see if someone can bring in his clobetasol for scalp. Discussed history more regarding diagnosis of bipolar disorder. Again AVH only occurs at nighttime. Patient describes what sounds like maybe some mixed hypomanic behaviors but they seemed only last for about 2 days. From his description marketing underwriter will not conclude bipolar disorder as the remaining other explainable reasons for these such episodes. Patient seems to be stabilizing; however he was recently contemplating suicide and symptoms are only newly resolved; patient needs to remain on the unit for safety for continued stabilization and titration of Zoloft. 3/3 patient continues to improve; will continue titrating Zoloft. Patient continues to improve and remained stable without SI will proceed with discharge planning. Discussed hypertension, A1c and patient agrees to start lisinopril Plan: CV Q 15 minute checks Increased to Zoloft 75 mg; will titrate to 100 mg Continue Abilify 10 mg START lisinopril 2.5 mg daily for hypertension given pre diabetic A1c; discussed risks/side effects of this medication which patient understood, ask questions and agrees to start Reviewed patient's medications for psoriasis and eczema and ordered Betamethasone b.i.d. Patient educated on: medication risk/benefits Informed Consent: understands Reason for contiued inpatient stay Substantial Risk for: rapid decompensation Time Spent With Patient Time: Total time managing care of this patient today ____ minutes.
[2022-05-12] MEDS: Sertraline HCL 25 MG TABLET 75 MG PO (12:19)
[2022-05-12 19:40] VITALS: BP 178/88; PULSE 102; TEMP 36.8
[2022-05-12] MEDS: cloNIDine HCL 0.1 MG TABLET PO (19:43)
[2022-05-12] MEDS: traZODone HCL 50 MG TABLET PO (19:43)
[2022-05-13] MEDS: Omeprazole 40 MG CAPSULE.DR PO (06:06)
[2022-05-13] MEDS: Famotidine 20 MG TABLET 40 MG PO (08:06)
[2022-05-13] MEDS: NaPROXEN 500 MG TABLET PO (08:06)
[2022-05-13] MEDS: amLODIPine Besylate 2.5 MG TABLET PO (08:06)
[2022-05-13] MEDS: ARIPiprazole 10 MG TABLET PO (08:06)
[2022-05-13] MEDS: Sertraline HCL 25 MG TABLET 75 MG PO (08:06)
[2022-05-13] MEDS: Atorvastatin Calcium 40 MG TABLET PO (08:06)
[2022-05-13] MEDS: Nicotine 21 MG PATCH.TD24 TRANSDERMA (08:10)
[2022-05-13 08:12] VITALS: BP 137/71; PULSE 82; RESP 18; TEMP 36.2; O2SAT 97
[2022-05-13] MEDS: Fluticasone/Vilanterol 100/25 BLST.W.DEV 1 PUFF INHALE (08:17)
--- NOTE | 2022-05-13 10:30 | P.DS_ITS ---
DS: Providers Provider Date of Service: 05/13/22 Date of admission: 05/07/22 16:05 Date of discharge: 05/13/22 Primary care physician: Leeann Krause MD Attending physician on admission: Anthony Grissom Attending physician on discharge: Anthony Grissom DS: Diagnosis Discharge Diagnosis (1) MDD (major depressive disorder), recurrent, severe, with psychosis: Status: Acute DS: Medications Discharge Medications Home Medications: Home Medications Medication Instructions Recorded Confirmed betamethasone dipropionate 0.05 % 1 appl topical PER PKG DIR 05/06/22 05/06/22 lotion budesonide-formoterol HFA 80 2 puff inhalation BID 05/06/22 05/06/22 mcg-4.5 mcg/actuation aerosol inhaler (Symbicort) dupilumab 300 mg/2 mL subcutaneous 300 mg subcut Q2W 05/06/22 05/06/22 syringe (eXpresso) naproxen 500 mg tablet 500 mg PO BID 05/06/22 05/06/22 Previous Rx's Medication Instructions Recorded amlodipine 2.5 mg tablet 2.5 mg PO DAILY 30 days #30 tabs 05/13/22 aripiprazole 10 mg tablet 10 mg PO DAILY 30 days #30 tabs 05/13/22 atorvastatin 40 mg tablet 40 mg PO DAILY 30 days #30 tabs 05/13/22 clonidine HCl 0.1 mg tablet 0.1 mg PO BEDTIME 30 days #30 tabs 05/13/22 famotidine 40 mg tablet 40 mg PO BID 30 days #60 tabs 05/13/22 nicotine 21 mg/24 hr daily 21 mg transdermal DAILY 28 days 05/13/22 transdermal patch #28 ea omeprazole 40 mg capsule,delayed 40 mg PO DAILY 30 days #30 caps 05/13/22 release sertraline 100 mg tablet 100 mg PO DAILY 30 days #30 tabs 05/13/22 trazodone 50 mg tablet 50 mg PO BEDTIME PRN Insomnia 30 05/13/22 days #30 tabs Mental Status Exam Mental Status Exam Narrative: Pt is alert and oriented; behavior is cooperative, friendly and calm; patient is not in distress; dressed in casual attire, clean shaven, psoriasis nearly resolved; good hygiene; mood is described as good and affect congruent, brighter, calm; eye contact appropriate; Speech is normal rate, volume and prosody and not pressured; no psychomotor agitation/retardation present; thought process is goal directed; Thought content is WNL, on discharge and pertinent to relevant topics and without any delusional content, paranoid ideations or grandiosity; no SI; no HI. No AH; no scary shadows. Patients insight and judgment are good Data Data Completed and Pending Completed studies during hospitalization [Text1]: 05/06/22 05/06/22 05/06/22 17:55 17:55 17:55 WBC RBC Hgb Hct MCV MCH MCHC RDW Plt Count MPV Immature Gran % (Auto) Neut % (Auto) Lymph % (Auto) [place] % (Auto) Eos % (Auto) Baso % (Auto) Lymph # (Auto) [place] # (Auto) Eos # (Auto) Baso # (Auto) Abs Immat Gran (auto) Absolute Neuts (auto) Absolute Nucleated RBC Nucleated RBC % (auto) Sodium Potassium Chloride Carbon Dioxide Anion Gap BUN Creatinine Estim Creat Clear Calc Estimated GFR Random Glucose Estimat Average Glucose Hemoglobin A1c % Calcium Magnesium Total Bilirubin AST ALT Alkaline Phosphatase Total Protein Albumin Triglycerides Cholesterol LDL Cholesterol, Calc HDL Cholesterol Vitamin B12 Folate TSH Free T4 Urine Color Yellow Urine Appearance Clear Urine pH 6.0 Ur Specific [place] >= 1.030 H Urine Protein Trace Urine Glucose (UA) Negative Urine Ketones Trace Urine Blood Negative Urine Nitrite Negative Ur Leukocyte Esterase Negative Salicylates Urine Opiates Screen Not Detected Urine Fentanyl Screen Not Detected Acetaminophen Ur Barbiturates Screen Not Detected Ur Phencyclidine Scrn Not Detected Ur Amphetamines Screen Not Detected U Benzodiazepines Scrn Not Detected Urine Cocaine Screen Not Detected U Marijuana (THC) Screen POSITIVE H Ethyl Alcohol COVID-19 (MARY) Negative COVID-19 Clin Com See Note 05/06/22 05/06/22 05/08/22 18:19 18:19 09:27 WBC 10.4 RBC 4.33 L Hgb 13.9 L Hct 41.2 L MCV 95.2 MCH 32.1 MCHC 33.7 RDW 15.2 Plt Count 251 MPV 11.5 Immature Gran % (Auto) 0.6 H Neut % (Auto) 60.5 Lymph % (Auto) 24.0 [place] % (Auto) 13.2 H Eos % (Auto) 1.3 Baso % (Auto) 0.4 Lymph # (Auto) 2.5 [place] # (Auto) 1.4 H Eos # (Auto) 0.1 Baso # (Auto) 0.0 Abs Immat Gran (auto) 0.06 H Absolute Neuts (auto) 6.3 Absolute Nucleated RBC 0.000 Nucleated RBC % (auto) 0.0 Sodium 144 Potassium 4.9 Chloride 110 H Carbon Dioxide 26 Anion Gap 13 BUN 20 H Creatinine 1.36 Estim Creat Clear Calc 63.6 Estimated GFR 56 Random Glucose 109 Estimat Average Glucose 111 Hemoglobin A1c % 5.5 Calcium 9.5 Magnesium 2.0 Total Bilirubin 0.8 AST 25 ALT 32 Alkaline Phosphatase 89 Total Protein 7.0 Albumin 4.3 Triglycerides Cholesterol LDL Cholesterol, Calc HDL Cholesterol Vitamin B12 Folate TSH Free T4 Urine Color Urine Appearance Urine pH Ur Specific [place] Urine Protein Urine Glucose (UA) Urine Ketones Urine Blood Urine Nitrite Ur Leukocyte Esterase Salicylates < 5.0 L Urine Opiates Screen Urine Fentanyl Screen Acetaminophen < 17 Ur Barbiturates Screen Ur Phencyclidine Scrn Ur Amphetamines Screen U Benzodiazepines Scrn Urine Cocaine Screen U Marijuana (THC) Screen Ethyl Alcohol < 10 COVID-19 ([facility]) COVID-19 [email or web address] Com 05/08/22 09:27 WBC RBC Hgb Hct MCV MCH MCHC RDW Plt Count MPV Immature Gran % (Auto) Neut % (Auto) Lymph % (Auto) [place] % (Auto) Eos % (Auto) Baso % (Auto) Lymph # (Auto) [place] # (Auto) Eos # (Auto) Baso # (Auto) Abs Immat Gran (auto) Absolute Neuts (auto) Absolute Nucleated RBC Nucleated RBC % (auto) Sodium Potassium Chloride Carbon Dioxide Anion Gap BUN Creatinine Estim Creat Clear Calc Estimated GFR Random Glucose Estimat Average Glucose Hemoglobin A1c % Calcium Magnesium 2.2 Total Bilirubin AST ALT Alkaline Phosphatase Total Protein Albumin Triglycerides 137 Cholesterol 216 LDL Cholesterol, Calc 145 HDL Cholesterol 44 Vitamin B12 549 Folate 15.2 TSH 1.30 Free T4 1.05 Urine Color Urine Appearance Urine pH Ur Specific [place] Urine Protein Urine Glucose (UA) Urine Ketones Urine Blood Urine Nitrite Ur Leukocyte Esterase Salicylates Urine Opiates Screen Urine Fentanyl Screen Acetaminophen Ur Barbiturates Screen Ur Phencyclidine Scrn Ur Amphetamines Screen U Benzodiazepines Scrn Urine Cocaine Screen U Marijuana (THC) Screen Ethyl Alcohol COVID-19 ([facility]) COVID-19 Clin Com DS: Summary Hospital Course Hospital Course: HPI: Patient is a 46-year-old male who reports he has a history of depression and bipolar disorder and chronic anxiety whose depression/anxiety has been worsening over the past 6 months since he's been off medications, getting considerably worse this past week, without known trigger, at which time patient became suicidal and thus self presented.? Patient reports that on Abilify and Zoloft he has been overall happy and doing well. -patient has intermittent AH however it is only at nighttime; he also refers to his bipolar disorder as having situationally triggered angry outbursts; will continue to assess however at this time will diagnosed with MDD, severe with psychotic symptoms.? Patient says he feels safe on the unit but SI remains.? Patient wants to restart his home medications which he says have been effective. -admit for safety and medication management HOspital course: 3 Patient reports that he is feeling a lot better.? He slept well last night.? Feels clear minded; he denies any SI or HI or AVH.? He agrees with continue titration of Zoloft and Abilify going to 10 mg, his home dose.? Discussed eczema/psoriasis which he feels is getting better.? He will see if someone can bring in his clobetasol for scalp. Discussed history more regarding diagnosis of bipolar disorder.? Again AVH only occurs at nighttime.? Patient describes what sounds like maybe some mixed hypomanic behaviors but they seemed only last for about 2 days.? From his description automobile and property underwriter will not conclude bipolar disorder as the remaining other explainable reasons for these such episodes.? Patient seems to be stabilizing; however he was recently contemplating suicide and symptoms are only newly resolved; patient needs to remain on the unit for safety for continued stabilization and titration of Zoloft. 3/ patient continues to improve; will continue titrating Zoloft.? Patient continues to improve and remained stable without SI will proceed with discharge planning. Discussed hypertension, A1c and patient agrees to start lisinopril; lisinopril however resulted in lip swelling and it was discontinued; angioedema resolved and patient was started amlodipine without problem. Patient's mood continued to improve and depression abated. SI remained resolved. His's depression fully resolved and he reported being in a good mood and future oriented; patient's affect was noticeably brighter and calm. Patient remained in good behavioral and impulse control throughout his time in the unit. He was eating and sleeping well, appropriate with peers and staff, engaged in treatment and attending groups. Patient's Zoloft was titrated to 100 mg and he reported tolerating medication regimen well. Patient felt ready for discharge and appointments with outpatient providers were established. Patient returned to baseline. Patient was not in imminent risk for harm to self or others and his request for discharge honored. Time spent discussing smoking cessation with patient: 3 to 10 minutes Status at Discharge Functional status at discharge: independent ambulation Overall status at discharge: patient is back to baseline Time Spent with Patient Time attestation: Total time managing care of this patient today ____ minutes. Time spent: Less than 30 minutes Discharge Plan Discharge Anticipated Discharge Date/Time: 05/13/22 11:30 Patient Disposition: Home, Self-Care Discharge Diagnosis: MDD, recurrent severe, with psychotic symptoms, in full rem ission (r/o bipolar) Referrals: Dr. Bailey: [facility] [Other] - 05/22/22 3:30 pm (Follow-up discharge appointment with psychiatric provider Appointment is in office at [facility] in [place], [place].) Ronny: [facility] (Therapist) [Other] - 05/21/22 1:00 pm (Follow-up discharge appointment with therapist Appointment in person at [facility] in [place], [place]) Leeann Krause MD [Primary Care Provider] - (Office will call you directly to schedule follow up. ) Discharge Medications: New nicotine 21 mg/24 hr Patch 24 Hour 21 mg transdermal DAILY 28 Days Qty: 28 0RF amlodipine 2.5 mg Tablet 2.5 mg PO DAILY 30 Days Qty: 30 0RF Protocol: Hold for SBP< HOLD for SBP < : 90 clonidine HCl 0.1 mg Tablet 0.1 mg PO BEDTIME 30 Days Qty: 30 0RF Protocol: Hold for SBP< HOLD for SBP < : 90 aripiprazole 10 mg Tablet 10 mg PO DAILY 30 Days Qty: 30 1RF sertraline 100 mg tablet 100 mg PO DAILY 30 Days Qty: 30 1RF trazodone 50 mg Tablet 50 mg PO BEDTIME PRN (Reason: Insomnia) 30 Days Qty: 30 1RF betamethasone, augmented 0.05 % Cream 1 appl topical BID Qty: 0 0RF Protocol: Apply to: Apply to: face/mckinley and body Continued betamethasone dipropionate 0.05 % Lotion 1 appl TOPICAL PER PKG DIR Rx Instructions: For eczema budesonide-formoterol [Symbicort] 80-4.5 mcg/actuation Hfa Aerosol Inhaler 2 puff INHALATION BID naproxen 500 mg Tablet 500 mg PO BID Dupixent Syringe 300 mg/2 mL Syringe 300 mg SUBCUT Q2W atorvastatin 40 mg Tablet 40 mg PO DAILY 30 Days Qty: 30 0RF famotidine 40 mg Tablet 40 mg PO BID 30 Days Qty: 60 0RF omeprazole 40 mg Capsule,Delayed Release(Dr/Ec) 40 mg PO DAILY 30 Days Qty: 30 0RF Discharge Orders: Discharge Order (Routine); Ordered 05/13/22 Ordered By: Anthony Grissom Diet: Diabetic diet Activity on Discharge: As tolerated Stand Alone Forms: Patient Portal Discharge page, Community Support Care Plan Goals: Maintain mood and safe behaviors Take medications as prescribed Practice coping skills Continue with outpatient providers and reach out to them as needed Health Concerns: Mood stability and behaviors Hypertension Pre-diabetes Plan of Treatment: Follow up with your PCP, psychiatric provider and other outpatient providers regarding above concerns Take medications as prescribed Assessment: Risk assessment at time of discharge:? Patient was interviewed prior to discharge and found to be fully oriented and without any SI or HI. Patient has insight and demonstrates good judgment in terms of wanting to pursue treatment. Patient is not in imminent risk of harm to self or others and has a safety plan that includes presenting to the closest ER or calling 911 if feeling unsafe.? Patient has been observed closely by nursing and unit staff throughout admission; patient has not engaged in any behaviors that suggest dangerousness to self or others and has demonstrated appropriate behaviors and impulse control Discharge Date/Time: 05/13/22 11:30
== END 2022-05-13 11:30 | disposition home or self-care (01) | DRG 885 ==
LOC: HO.ED 05-07 06:33 → HO.PM5 05-07 16:10
PROVIDERS: Physician Assistant; Admitting Provider Clinical Nurse Specialist Psychiatric/Mental Health, Adult; Emergency Provider Emergency Medicine Emergency Medical Services; PCP Internal Medicine; Visit Provider Psychiatry & Neurology Psychiatry
DX: F33.3 Major depressive disorder, recurrent, severe with psychotic symptoms (principal); R45.851 Suicidal ideations; L40.9 Psoriasis, unspecified; F41.9 Anxiety disorder, unspecified; I10 Essential (primary) hypertension; F17.210 Nicotine dependence, cigarettes, uncomplicated; Z71.6 Tobacco abuse counseling; Z20.822 Contact with and (suspected) exposure to COVID-19; Z79.899 Other long term (current) drug therapy
CPT/HCPCS: 36415; 80053; 80061; 80143; 80179; 80307; 81003; 82077; 82607; 82746; 83036; 83735; 84439; 84443; 85025; 87635; 93005; 99285